=== PATIENT | male | born 1980 | race Caucasian/White ===

== ENCOUNTER 2019-02-14 08:55 | Emergency (ER) | payer SELFPAY ==
[2019-02-14] MEDS: LIDOCAINE 1% (MPF) 5 ML VIAL INJ (10:28)
[2019-02-14] MEDS: IBUPROFEN 800 MG TAB PO (10:28)
[2019-02-14] MEDS: CEFAZOLIN 1 GM INJ IM (12:17)
== END 2019-02-14 12:30 | disposition home or self-care (01) ==
LOC: FTE 08:55
DX: S61.217A Laceration without foreign body of left little finger without damage to nail, initial encounter (principal); W27.0XXA Contact with workbench tool, initial encounter; Y92.9 Unspecified place or not applicable
CPT/HCPCS: 12001; 73140; 96372; 99284-25

== ENCOUNTER 2019-02-16 05:53 | Emergency (ER) | payer SELFPAY | END 2019-02-16 10:50 | disposition home or self-care (01) | LOC: FTE 10:50 | DX: Z48.01 Encounter for change or removal of surgical wound dressing (principal) | CPT/HCPCS: 29130; 99282-25 ==